=== PATIENT | male | born 1980 | race Caucasian/White ===

== ENCOUNTER 2017-01-02 16:20 | Emergency (ER) | payer MEDICAID ==
[~2017-01-02] VITALS: Ht 182.9 cm; Wt 118.2 kg
[~2017-01-02 16:20] MED LIST: ADVIL200 MG PO; ALEVE 220MG220 MG PO; AMOXICILLIN 8751 TAB PO; ANTIVERT 25MG25 MG PO; ASPIRIN 81M81 MG/TA2 PO; ATIVAN 0.50.5 MG/TAB PO; CALAN120 MG PO; DEPAKENE250 MG PO; DILAUDID 2MG TAB2 MG PO; DOXYCYCLINE 10100 MG PO; EYE DROPS; FIORICET 325 MG1 TA1 PO; FLEXERIL 1010 MG/TAB PO; LIPITOR 10MG10 MG PO; LORTAB 5/500 501 TAB PO; MOBIC 7.5MG7.5 MG PO; MOTRIN 600600 MG/TAB PO; MULTI VITAMINS1 TAB PO; NAPROSYN500 MG PO; NORCO 325 MG-101 TAB PO; NORCO 325 MG-51 TAB PO; NORCO 325 MG-7.1 TAB PO; PERCOCET 325 MG1 TA2 PO; PERCOCET PO; PERCR 7.5 PO; PHENERGAN 25 TA25 MG PO; PREDNISONE20 MG PO; PRINIVIL10 MG PO; PRINIVIL20 MG PO; SKELAXIN 800MG800 MG PO; SOMA 350MG350 MG/TAB PO; SOMA250 MG PO; TOPROL XL 25MG25 MG PO; TUSS PO; ULTRAM 50MG TAB50 MG PO; VALIUM 10MG10 MG/TAB PO; XANAX 1MG1 MG PO; ZESTRIL 10MG10 MG PO; ZITHROMAX Z PA250 MG PO; ZOFRAN 4MG T4 MG/TAB PO; ZOLOFT 100MG100 MG PO; ZOLOFT 50MG50 MG PO
[2017-01-02 16:28] VITALS: BP 137/93; TEMP 98.2
[2017-01-02 18:17] VITALS: PULSE 96
== END 2017-01-02 17:46 | disposition home or self-care (01) ==
LOC: COL.ER 16:20
DX: T22.211A Burn of second degree of right forearm, initial encounter (principal); X10.2XXA Contact with fats and cooking oils, initial encounter; Y92.000 Kitchen of unspecified non-institutional (private) residence as the place of occurrence of the external cause; I10 Essential (primary) hypertension; E78.5 Hyperlipidemia, unspecified; F17.210 Nicotine dependence, cigarettes, uncomplicated

== ENCOUNTER 2017-01-04 12:14 | Emergency (ER) | payer MEDICAID ==
[~2017-01-04] VITALS: Ht 185.4 cm; Wt 133.0 kg
[2017-01-04 12:23] VITALS: BP 159/96; PULSE 83; TEMP 98.7
[2017-01-04] MEDS ORDERED: NORCO 325 MG-51 TAB PO (13:55)
[2017-01-04] MEDS ORDERED: BACTRIM DS 8001 TAB PO (13:55)
== END 2017-01-04 14:04 | disposition home or self-care (01) ==
LOC: COL.ER 12:14
DX: L03.113 Cellulitis of right upper limb (principal); I10 Essential (primary) hypertension; F17.210 Nicotine dependence, cigarettes, uncomplicated; Z79.82 Long term (current) use of aspirin; X12.XXXA Contact with other hot fluids, initial encounter

== ENCOUNTER 2017-01-21 16:07 | Emergency (ER) | payer MEDICAID ==
[~2017-01-21] VITALS: Ht 185.4 cm; Wt 121.4 kg
[~2017-01-21 16:07] MED LIST changes: +BACTRIM DS 8001 TAB PO
[2017-01-21 16:09] VITALS: TEMP 98.7
[2017-01-21 17:13] LABS: BASO # 0.1 (0.0-0.2); BASO % 0.5 % (0.0-2.0); EOS # 0.1 (0.0-0.7); EOS % 0.8 % (0-4.0); GRAN # 10.7 (1.4-6.5); GRAN % 73.7 % (42.2-75.2); HEMATOCRIT 49.6 % (42.0-52.0); HEMOGLOBIN 16.7 g/dl (13.5-18.0); LYMPH # 2.7 (1.2-3.4); LYMPH % 18.9 % (20.0-51.0); MEAN CELL VOLUME 90 fl (80.0-100.0); MEAN CORPUSCULAR HEMOGLOBIN 30 pg (27.0-31.0); MEAN CORPUSCULAR HGB CONC 34 g/dl (33.0-37.0); MEAN PLATELET VOLUME 11.1 fl (7.4-10.4); MONO # 0.8 (0.1-0.6); MONO % 5.7 % (1.7-9.3); PLATELET COUNT 300 K/mm3 (130-400); RED BLOOD COUNT 5.51 M/mm3 (4.20-5.60); WHITE BLOOD COUNT 14.5 K/mm3 (4.8-10.8)
[2017-01-21 17:20] LABS: ADJUSTED CALCIUM 9.1 mg/dL (8.4-10.2); ALANINE AMINOTRANSFERASE 44 U/L (21-72); ALBUMIN 4.7 gm/dL (3.5-5.0); ALKALINE PHOSPHATASE 95 U/L (50-136); ANION GAP 12 mmol/L (7-16); BILIRUBIN,TOTAL 0.7 mg/dL (0.0-1.0); BLOOD UREA NITROGEN 12 mg/dL (9-20); CALCIUM 9.7 mg/dL (8.4-10.2); CARBON DIOXIDE 22 mmol/L (22-30); CHLORIDE 105 mmol/L (98-107); CREATININE, serum 0.89 mg/dL (0.66-1.25); GLUCOSE 86 mg/dL (74-106); SODIUM 139 mmol/L (137-145); TOTAL PROTEIN 7.9 gm/dL (6.4-8.2)
[2017-01-21 17:41] LABS: TROPONIN-I < 0.012 ng/mL (0.000-0.034)
[2017-01-21] MEDS ORDERED: HCTZ 25MG TAB25 MG PO (18:34)
[2017-01-21 18:56] VITALS: BP 129/76; PULSE 59
[2017-01-21 18:57] LABS: URINE APPEARANCE Clear; URINE COLOR Yellow
[2017-01-21 18:58] LABS: PH 5 (5-8); SQUAMOUS EPITHELIAL 0-2 /hpf; URINE BILIRUBIN Negative (NEGATIVE); URINE BLOOD Negative (NEGATIVE); URINE GLUCOSE Negative (NEGATIVE); URINE KETONE Negative (NEGATIVE); URINE RBC 0-2 /hpf; URINE UROBILINOGEN Negative (NEGATIVE); URINE WBC 0-2 /hpf
[2017-01-21 19:28] LABS: AMPHETAMINE URINE NEGATIVE; BARBITURATES URINE NEGATIVE; BENZODIAZEPINES URINE NEGATIVE; BUPRENORPHINE URINE NEGATIVE; METHADONE URINE NEGATIVE; OPIATES URINE POSITIVE; OXYCODONE URINE NEGATIVE; PHENCYCLIDINE URINE NEGATIVE; PROPOXYPHENE URINE NEGATIVE; THC CANNABINOIDS URINE NEGATIVE
== END 2017-01-21 19:45 | disposition home or self-care (01) ==
LOC: COL.ER 16:07
PROVIDERS: Emergency Medicine
DX: I10 Essential (primary) hypertension (principal); R07.89 Other chest pain; R51 Headache; E78.00 Pure hypercholesterolemia, unspecified; R73.03 Prediabetes; Z79.82 Long term (current) use of aspirin
CPT/HCPCS: J1170; J2550; J7030

== ENCOUNTER 2017-02-04 08:49 | Emergency (ER) | payer MEDICAID ==
[~2017-02-04 08:49] MED LIST changes: +HCTZ 25MG TAB25 MG PO
[2017-02-04 08:51] VITALS: TEMP 98
[2017-02-04 09:43] LABS: BASO # 0.1 (0.0-0.2); BASO % 0.6 % (0.0-2.0); EOS # 0.2 (0.0-0.7); EOS % 1.5 % (0-4.0); GRAN # 7.3 (1.4-6.5); GRAN % 65.5 % (42.2-75.2); HEMATOCRIT 48.1 % (42.0-52.0); HEMOGLOBIN 16.3 g/dl (13.5-18.0); LYMPH # 2.7 (1.2-3.4); LYMPH % 23.8 % (20.0-51.0); MEAN CELL VOLUME 91 fl (80.0-100.0); MEAN CORPUSCULAR HEMOGLOBIN 31 pg (27.0-31.0); MEAN CORPUSCULAR HGB CONC 34 g/dl (33.0-37.0); MEAN PLATELET VOLUME 10.7 fl (7.4-10.4); MONO # 0.9 (0.1-0.6); MONO % 8.3 % (1.7-9.3); PLATELET COUNT 269 K/mm3 (130-400); RED BLOOD COUNT 5.27 M/mm3 (4.20-5.60); REDCELL DISTRIBUTION WIDTH-CV 13.3 % (11.5-14.5)
[2017-02-04 10:09] LABS: ALANINE AMINOTRANSFERASE 53 U/L (21-72); ALBUMIN 4.3 gm/dL (3.5-5.0); ALKALINE PHOSPHATASE 102 U/L (50-136); ANION GAP 12 mmol/L (7-16); AST,SGOT 48 U/L (15-37); BILIRUBIN,TOTAL 0.5 mg/dL (0.0-1.0); BLOOD UREA NITROGEN 12 mg/dL (9-20); CALCIUM 9.9 mg/dL (8.4-10.2); CARBON DIOXIDE 24 mmol/L (22-30); CHLORIDE 107 mmol/L (98-107); CREATININE, serum 0.79 mg/dL (0.66-1.25); GLUCOSE 93 mg/dL (74-106); POTASSIUM 4.7 mmol/L (3.4-5.0); SODIUM 143 mmol/L (137-145); TOTAL PROTEIN 7.2 gm/dL (6.4-8.2)
[2017-02-04 10:20] LABS: TROPONIN-I < 0.012 ng/mL (0.000-0.034)
[2017-02-04 10:44] VITALS: BP 145/97; PULSE 82
== END 2017-02-04 10:45 | disposition home or self-care (01) ==
LOC: COL.ER 08:49
PROVIDERS: Emergency Medicine
DX: I10 Essential (primary) hypertension (principal); R07.89 Other chest pain; R51 Headache; E78.5 Hyperlipidemia, unspecified; F17.210 Nicotine dependence, cigarettes, uncomplicated; Z87.19 Personal history of other diseases of the digestive system; Z79.82 Long term (current) use of aspirin; Z98.890 Other specified postprocedural states

== ENCOUNTER 2017-09-20 13:31 | Emergency (ER) | payer SELFPAY ==
[~2017-09-20] VITALS: Ht 185.4 cm; Wt 118.2 kg
[2017-09-20 13:33] VITALS: BP 130/82; TEMP 97.9
[2017-09-20] MEDS ORDERED: DESYREL 50MG50 MG PO (14:16)
[2017-09-20] MEDS ORDERED: ZESTRIL 20MG TA20 MG PO (14:16)
[2017-09-20] MEDS ORDERED: TOPAMAX50 MG PO (14:17)
[2017-09-20] MEDS ORDERED: NORVASC 10MG10 MG PO (14:17)
[2017-09-20] MEDS ORDERED: BONINE25 MG PO ×2 (14:18)
[2017-09-20] MEDS ORDERED: LIPITOR 80MG80 MG PO (14:18)
[2017-09-20] MEDS ORDERED: TESSALON P100 MG/CAP PO (14:52)
[2017-09-20 15:31] VITALS: PULSE 102
== END 2017-09-20 15:46 | disposition home or self-care (01) ==
LOC: COL.ER 13:31
DX: J06.9 Acute upper respiratory infection, unspecified (principal); J40 Bronchitis, not specified as acute or chronic; G43.909 Migraine, unspecified, not intractable, without status migrainosus; I10 Essential (primary) hypertension; F17.210 Nicotine dependence, cigarettes, uncomplicated; Z87.39 Personal history of other diseases of the musculoskeletal system and connective tissue; Z86.69 Personal history of other diseases of the nervous system and sense organs; Z98.890 Other specified postprocedural states
CPT/HCPCS: J0595